=== PATIENT | male | born 1950 | race Caucasian/White ===

== ENCOUNTER → 2016-09-13 | Outpatient (CLI) | payer OTHER, BC ==
[~2016-09-13] MED LIST: ASPEC81 PO; GEMF600T3 PO; LISI-787 PO; OXYC5TAB PO; PRLSR20 PO
--- NOTE | 2016-09-14 06:02 | PAP/PSG TECHNICIAN REPORT ---
[facility] Staff Physical Therapy Assistant Polysomnogram Report Study name: None Report date: 09/14/2016 Study date: 09/13/2016 Referring Physician: Octaviano Monson M.D. Name: SHAIPATVIDAL Interpreting Physician: Cyndi Monson M.D. Date of : 1950 Staff Physical Therapy Assistant: Haleigh Rosales RPSGT. Sex: Male Age: 65 StudyType: PSG Weight: 172 lbs Height: 65 years, Height 5' 3.5" Neck Circum:16.5inches BMI: 29.99 Medications: Multi Vitamin, Lisinopril-HCTZ 20-12.5mg, Viagra 100mg, Lipitor 40mg, Omeprazole 20mg, ASA 81mg Patient History Study started on room air with no ETCO2 monitoring in room #8. 65 yr old male here tonight for a possible split psg. He complains of EDS, snoring and witnessed apnea. He has leg pain that bothers him while sleeping. His ESS=9/24. Neck circ=16.5inches. Parameters Monitored NPSG: E1-M2, E2-M1, Fp1-M2, Fp2-M1, F3-M2, F4-M2, F4-M1, C3-M2, C4-M2, C4-M1, O1-M2, O2-M2, O2-M1, T3-M2, T4-M1, P3-M2, P4-M1, CHIN1, CHIN2, HR, EKG, Legs, PFLOW, SNOR, FLOW, CFLOW, Tidal Volume, THOR, ABDO, SpO2, PLTH, CPRESS, ETCO2 Wave, ETCO2, pH Sleep Architecture Sleep Stages Time at Lights Off 10:43:53 PM STAGES Time (min.) TST (%) Time at Lights On 5:23:53 AM Wake 47.0 -- Total Recording Time (TRT) 400.00 min. N1 40.5 11 Total Sleep Period (TSP) 389.5 min. N2 204.5 58 Total Sleep Time (TST) 353.0min. N3 47.5 13 Awake Time 47.0 min. REM 60.5 17 Wake after Sleep Onset 36.5 min. Sleep Efficiency (SE) 88 % Sleep Onset Latency (CASSIE) 10.5 min. Number of Stage 1 Shifts None Awakenings 25 Stage Changes 133 Number of REM periods 9 REM 60.5 17 REM Latency 76.0 min. NREM 292.5 83 Body Position Analysis Supine Right Left Side Prone Vertical Total Sleep Time (min.) 318.3 79.0 0.0 79.00 0.0 0.0 Total Sleep Time (%) 78% 22% 0% 22 0% N/A% Total Sleep Time REM (min.) 31.5 29.0 0.0 None 0.0 0.0 Total Sleep Time NREM (min.) 242.5 50.0 0.0 None 0.0 0.0 Intermittent Wake (min.) 44.3 2.7 0.0 None 0.0 0.0 Total Sleep Period (%) 79% None None None None None Arousals Myoclonus (PLM) * Events Count Index Events Count Index Spontaneous 37 6 Events Awake (PLMW) 77 98.3 Respiratory 18 3.4 Events Asleep w/ Arousal (PLMA) 15 2.5 PLM 15 3 Events Asleep w/o Arousal (PLMS) 118 20.1 Snoring 12 2 Total Asleep 133 22.6 Total 82 14 Total 210 32 Respiratory Analysis * CA OA MA CH H RERA Total Count 1 13 2 0 58 0 74 Index 0.2 2.2 0.3 0 9.9 0 12.6 Mean Duration 19.0 18.3 21.1 0.00 22.8 0.0 21.9 Longest Duration 19.0 23.2 25.8 0.00 25.8 0.0 41.6 Respiratory Event Summary Total Supine ~Supine Right Left Prone REM NREM Apneas Count 16 16 0 0 N/A N/A 3 13 Index 2.7 4 0 0.0 N/A N/A 3 3 Hypopneas (4% Desat) Count 58 58 0 0 N/A N/A 5 53 Index 9.9 12.7 0 0.0 N/A N/A 5.0 10.9 Apneas & All Hypopneas Count 74 74 0 0 N/A N/A 8 66 Index 12.6 16 0 0 N/A N/A 7.9 13.5 Respiratory Events (Registered Radiologic Technologist+All Hyp+RERA) Count 74 74 0 0 N/A N/A 8 66 Index 12.6 16 0 0.0 N/A N/A 7.9 13.5 Respiratory Related Arousal Count 18 74 0 0 N/A N/A 1 19 Index 3.4 4 0 0 N/A N/A 1 4 Snoring Analysis Supine Right Left Prone REM NREM Total Snore duration 6.9 min Snores count 347 14 N/A N/A 44 317 361 Snore mean duration 1.1 Sec Snores index 76 11 N/A N/A 43.6 65.0 61.4 TST with snoring (%) 2.0% Desaturation Event Summary: Minimum %SpO2 Event Count Mean/Min/Max Duration(sec.) Desaturation Index % Time In Bed > 90 100 28.6 / 4.3 / 60.0 19.3 78.1 86 - 90 13 20.5 / 6.5 / 46.5 9.0 21.7 81 - 85 0 N/A 0.0 0.2 76 - 80 0 N/A 0.0 0.0 71 - 75 0 N/A 0.0 0.0 66 - 70 0 N/A 0.0 0.0 61 - 65 0 N/A 0.0 0.0 56 - 60 0 N/A 0.0 0.0 51 - 55 0 N/A 0.0 0.0 < 50 0 N/A 0.0 0.0 Total REM NREM Awake <50% 0.0 min. 0.0 min. 0.0 min. 0.0 min. 51 - 60% 0.0 min. 0.0 min. 0.0 min. 0.0 min. 61 - 70% 0.0 min. 0.0 min. 0.0 min. 0.0 min. 71 - 80% 0.0 min. 0.0 min. 0.0 min. 0.0 min. 81 - 90% 87.2 min. 10.4 min. 69.3 min. 7.5 min. 91 - 100% 311.3 min. 50.0 min. 222.8 min. 38.5 min. Average 92 92 92 92 Minimum SpO2 82 86 82 85 Desaturation Event Index 15.3 15.9 16.2 12.8 # Desat. Events below 89% 37 10 24 3 Time(%) with Saturation below 89% 2.5 0.4 2.0 0.1 Time(min.) with Saturation below 89% 10.0 1.6 7.9 0.5 Time (mins) REM (mins) NREM (mins) % of TST SpO2 Below 90% 86 14 N72 8.8 SpO2 Below 88% 15 0 0 1 Heart Rate Analysis Min (bpm) Max (bpm) Average (bpm) Awake 38 74 47 NREM 38 127 43 REM 34 52 42 Overall 34 127 43 Supplemental O2 Values Minimum O2 level: None Value Start Time End Time Staff Physical Therapy Assistant Comments Mr. Mcqueen slept in the right and supine position with the head of his bed elevated. No cardiac arrhythmia noted. Some leg movements were noted. No bruxism noted. Snoring was noted and scored as a 2 on a scale of 1 through 5. (0=no snoring, 5=snoring loud enough to be heard through a closed door or down the [address] way) He did not use the restroom during the night. He stated that he slept poorly. The final report will be interpreted and signed by a sleep physician. The completed physician report will then be placed in the patient medical record. Therapy (cm H2O) 0 TIB (min.) 400.0 TST (min.) 353.0 Sleep Onset (min.) 10.5 REM Onset From Sleep (min.) 76.0 Sleep Efficiency % 88 Wakefulness (%) 12 Wakefulness (min.) 47.0 NREM 1 (%) 11 NREM 1 (min.) 40.5 NREM 2 (%) 58 NREM 2 (min.) 204.5 NREM 3 (%) 13 NREM 3 (min.) 47.5 REM (%) 17 REM (min.) 60.5 # Arousals 82 Arousal Index 14 # Snore 361 Snore Index 61.4 AHI 12.6 AHI Supine 16 AHI Non-Supine 0 NREM AHI 13.5 REM AHI 7.9 RDI 12.6 # Obstructive Apnea 13 # Central Apnea 1 # Mixed Apnea 2 # Hypopneas 58 RERAs 0 Total Respiratory Events 79 Time Below SpO2 89% (min.) 9.5 Mean NREM SpO2 (%) 92 Mean REM SpO2 (%) 92 Mean Sleep SpO2 (%) 92 Min NREM SpO2 (%) 82 Min REM SpO2 (%) 86 Position Supine (min.) 318.3 Position Non-supine (min.) 79.0 LM Index Sleep 22.6 LM Index NREM 19.7 LM Index REM 36.7 Mean Heart Rate (bpm) 43 Min Heart Rate (bpm) 34
--- NOTE | 2016-09-24 21:39 | POLYSOMNOGRAPH REPORT ---
REFERRING PERSON: Cyndi Monson MD HAUL CANE BRAKEMAN: Haleigh Rosales Mr. Mcqueen is a 65-year-old male, sent for a possible split night sleep study. He complains of snoring, excessive daytime sleepiness and witnessed apneas. His Thornton Sleepiness Scale score on the evening of this study is 9. BMI is 29.99. Following the technical and digital specifications of the [employer] (AASM) a standard diagnostic polysomnogram was performed monitoring EEG, EOG, EMG (chin and leg deviations), oxygen saturation, body position, digital video, respiratory effort and airflow. The sleep Stage and event scoring was based on the AASM Manual for the Scoring of Sleep and Associated Events 2007 edition. Apneas are defined as a drop in the peak thermal sensor excursion by >90% of baseline for at least 10 seconds. Hypopneas were scored using the 4% oxygen desaturation rule (4A-[employer]) and a decrease in the nasal pressure excursions by >30% of baseline for at least 10 seconds. Respiratory effort-related arousal (RERA's) is defined as a sequence of breaths lasting at least 10 seconds characterized by increasing respiratory effort or flattening of the nasal pressure waveform leading to an arousal from sleep when the sequence of breaths does not meet criteria for an apnea or hypopnea. Apnea Hypopnea index (AHI) is defined as the number of apneas and hypopneas occurring in an hour of sleep. Respiratory disturbance index (RDI) is defined as the number of apneas, hypopneas, and RERA's occurring in an hour of sleep. Mr. Mcqueen's total sleep period time was 389.5 minutes. Total sleep time was 353 minutes. Sleep efficiency was 88%. Latency to sleep onset was 10.5 minutes with wake after sleep onset of 36.5 minutes. Total non-REM sleep time was 292.5 minutes. He spent 11% of that time in N1 sleep, 58% in N2 sleep and 13% in N3 sleep. REM latency was 76 minutes. Total REM sleep time was 60.5 minutes or 17% of total sleep time. There were 82 cortical arousals from sleep; 37 of these arousals were spontaneous, 18 were due to respiratory events, 15 due to periodic limb movements of sleep and 12 were due to snoring. There were 133 periodic limb movements noted on this test. Limb movement index was 22.6. Limb movement with arousal index was 2.5. There was 1 central, 13 obstructive and 2 mixed apneas. There were 58 hypopneas. Apnea-hypopnea index was elevated at 12.6. Supine AHI was 16 and REM AHI was 7.9. There were 361 snoring events recorded. Total sleep time with snoring was 2%. Mean saturation was 92% with desaturations to 82%. Saturations were less than 89% for 10 minutes of recorded time. There was no cardiac ectopy noted on this study. Heart rates ranged from a low of 34 beats per minute to a high of 127 beats per minute during sleep. IMPRESSION AND PLAN: Mr. Mcqueen is a 65-year-old male, with an AHI of 12.6. Supine AHI was 16 and REM AHI was 7.9. He also had mild nocturnal hypoxemia with saturations less than 89% for 10 minutes. 1. The patient would likely benefit from positive airway pressure therapy. He should return to the sleep lab for a full night titration and then based on those results be started on equipment at home. A download from his machine should be reviewed in 1 month; both to check compliance as well as AHI and further pressure adjustments can occur at that time. 2. Alternatively, this patient could be started on auto-titrating CPAP at home. A download from his machine can be reviewed in 1 month and he could be set to optimal pressure at that time. 3. Should this patient be unwilling or unable to tolerate CPAP therapy, he should be referred to ear, nose and throat or oral surgery/dental medicine to discuss alternative treatments for sleep disordered breathing.
== END | disposition home or self-care (01) ==
LOC: C.NEUR 21:00
PROVIDERS: ATTEND Family Medicine
DX: G47.33 Obstructive sleep apnea (adult) (pediatric) (principal); G47.10 Hypersomnia, unspecified; R06.83 Snoring